=== PATIENT | female | born 1985 | race African-American/Black ===

== ENCOUNTER 2020-10-21 22:23 | Emergency (ER) | payer OTHER, SELFPAY ==
[2020-10-21 22:25] VITALS: BP 132/94; PULSE 112; RESP 18; TEMP 36.1; O2SAT 99
[2020-10-21] MEDS: SODIUM CHLORIDE 0.9% IV 1,000 ML 999 ML IV CONT (23:01)
[2020-10-21] MEDS: KETOROLAC 30 MG/ML VIAL (*BKC) IV PUSH (23:04)
--- NOTE | 2020-10-21 23:41 | ED.DENTAL ---
HPI - Dental/Oral General Chief complaint: Dental/Oral Stated complaint: sore throat, cant swallow Time Seen by Provider: 10/21/20 22:29 Source: RN notes reviewed History of Present Illness HPI Narrative: Patient presents emergency room from home for sore throat. Patient states symptoms began 2 days ago. She states she has sore throat that is worse with swallowing denies any fevers or chills rhinorrhea cough congestion abdominal pain nausea vomiting or any other symptoms states she has a history of frequent strep infections and feels similar to the past. States that she is able to tolerate liquids but is been drinking and eating minimally because it is very painful Related Data Allergies Allergy/AdvReac Type Severity Reaction Status Date / Time No Known Allergies Allergy Unverified 03/15/17 07:58 Review of Systems Review of Systems: Narrative: Gen.: Denies fevers or chills Eyes: Denies eye pain or visual change ENT: See HPI Respiratory: Denies shortness of breath or cough CV: Denies chest pain or palpitations GI: Denies abdominal pain nausea, emesis or diarrhea denies chance of Musculoskeletal: Denies back pain or muscle pain Neuro: Denies numbness, tingling, weakness or focal weakness Skin: Denies rash Except as documented, all other systems reviewed and negative PMFSH Past Medical History Medical History (Updated 10/21/20 @ 23:43 by Ritesh Covington DO) Patient denies significant medical history Social History Social History Smoking status: Never smoker Gender identity (if verbalized by the patient): Female Sexual Orientation (if Verbalized by the Patient): Straight or Heterosexual Exam Narrative: Exam Narrative: APPEARANCE: No acute distress, nontoxic, resting in bed EYES: EOMI HEENT: Normocephalic, atraumatic, TMs clear bilaterally nares patent oral mucosa moist, bilateral tonsils 3+ with white exudate bilaterally uvula midline no trismus voice normal tolerating own secretions Neck: Supple nontender RESPIRATORY: No respiratory distress Clear to auscultation bilaterally with no rhonchi wheezing or rales. CARDIOVASCULAR: Regular rate and rhythm without murmurs rubs or gallops. ABDOMINAL: Soft, nontender, nondistended, MUSCULOSKELETAl: Moves all extremities. NEURO: Awake and alert. Following commands, speech normal, no focal deficits SKIN:: Warm, dry. No rashes lesions or abrasions PSYCHIATRIC: Normal affect/mood, Course Course Emergency Course: Discussed with patient results of workup and diagnosis. Discussed need for follow-up with primary care, proper use of medication, and reasons to return to the emergency department. Patient understands and agrees to current treatment plan Vital Signs Vital signs: Vital Signs Temperature 96.9 F L 10/21/20 22:25 Pulse Rate 112 H 10/21/20 22:25 Respiratory Rate 18 10/21/20 22:25 Blood Pressure 132/94 H 10/21/20 22:25 Pulse Oximetry 99 10/21/20 22:25 Temperature 96.9 F L 10/21/20 22:25 Pulse Rate 112 H 10/21/20 22:25 Respiratory Rate 18 10/21/20 22:25 Blood Pressure 132/94 H 10/21/20 22:25 Pulse Oximetry 99 10/21/20 22:25 MDM - Dental/Oral Lab Data Labs: Strep Screen Presumptive Negative *(Reference Range: Negative)* Discharge Plan Discharge Clinical Impression: Pharyngitis Patient Disposition: Still a Patient Condition: Stable Instructions: Pharyngitis (ED) Additional Instructions: Return for increasing pain fever inability to swallow or any other symptoms of concern Prescriptions: New amoxicillin-pot clavulanate [Augmentin] 875-125 mg tablet 1 tablet PO Q12H Qty: 20 RF: 0 ibuprofen [IBU] 600 mg tablet 600 mg PO Q6H PRN (Reason: pain) Qty: 20 RF: 0 No Action amoxicillin-pot clavulanate [Augmentin] 875-125 mg tablet 1 tablet PO Q12H 10 Days Qty: 20 RF: 0 ibup
[2020-10-22] MEDS: AMOXICILLIN/CLAVULANATE K 875-125 MG TAB 1 TABLET PO (00:15)
[2020-10-22 00:19] VITALS: BP 130/90; PULSE 94; RESP 17; O2SAT 99
== END 2020-10-22 00:21 | disposition home or self-care (01) ==
PROVIDERS: Emergency Provider Emergency Medicine; PCP Emergency Medicine
DX: J02.9 Acute pharyngitis, unspecified (principal)
CPT/HCPCS: 87081; 87880; 96361; 96374; 96375; 99284; A9270; J1100; J1885; J7030

== ENCOUNTER 2020-12-06 11:20 | Outpatient (CLI) | payer OTHER, SELFPAY ==
[2020-12-06 11:40] LABS: Basophils Percent Auto 0.4 % (0.2-1.2); Eosinophils Percent Auto 0.7 % (0-4.4); Hemoglobin 12.2 g/dL (12.0-15.0); Immature Granulocyte Absolute 0.01 K/mm3 (0.00-0.031); Immature Granulocyte Percent A 0.2 % (0-0.5); Lymphocytes Absolute Auto 2.63 K/mm3 (0.9-3.2); Lymphocytes Percent Auto 46.4 % (18.3-44.2); Mean Corpuscular Hemoglobin 26.1 pg (26-34); Mean Corpuscular Volume 79.1 fl (80-100); Mean Platelet Volume 9.9 fl (7.4-10.4); Monocytes Absolute Auto 0.3 K/mm3 (0.1-0.6); Neutrophils Absolute Auto 2.6 K/mm3 (1.3-6.7); Neutrophils Percent Auto 46.3 % (45.5-73.1); Platelet Count Result 289 k/mm3 (150-375); Red Blood Count 4.68 M/mm3 (4.2-5.4); Red Cell Distribution Width 15.9 % (11.5-14.5); White Blood Count 5.7 K/mm3 (4.5-10.0)
[2020-12-06 13:22] LABS: Alanine Aminotransferase 18 U/L (4-35); Albumin Level 4.2 g/dL (3.5-5.1); Alkaline Phosphatase 81 U/L (38-126); Anion Gap 7 mmol/L (8-16); Aspartate Amino Transferase 24 U/L (14-36); Bilirubin,Total 0.4 mg/dL (0.2-1.3); Blood Urea Nitrogen 9 mg/dL (7-17); Calcium 9.2 mg/dL (8.4-10.2); Carbon Dioxide 28 mmol/L (22-30); Chloride 107 mmol/L (98-107); Estimated Glomerular Filt Rate > 60; Glucose 85 mg/dL (65-105); Potassium 4.2 mmol/L (3.4-5.0); Sodium 142 mmol/L (137-145)
[2020-12-06 13:28] LABS: Immunoglobulin A 301 mg/dL (70-400); Immunoglobulin G 2543 mg/dL (700-1600); Immunoglobulin M 133 mg/dL (40-230)
[2020-12-08 10:57] LABS: Kappa\\Lambda Light Chains 0.85 (0.26-1.65); Lambda Light Chain 24.6 mg/L (5.7-26.3)
[2020-12-09 05:04] LABS: Albumin 3.9 g/dL (3.8-4.8); Alpha 1 Globulin 0.4 g/dL (0.2-0.3); Alpha 2 Globulin 0.8 g/dL (0.5-0.9); Beta 1 Globulin 0.6 g/dL (0.4-0.6); Gamma Globulin 2.3 g/dL (0.8-1.7); Protein, Total 8.5 g/dL (6.1-8.1)
== END 2020-12-06 11:21 | disposition home or self-care (01) ==
LOC: ANHLAB 11:22
PROVIDERS: PCP Emergency Medicine; Visit Provider Internal Medicine Hematology & Oncology
DX: D80.1 Nonfamilial hypogammaglobulinemia (principal)
CPT/HCPCS: 36415; 80053; 82784; 83883; 84155; 84165; 84443; 85025

== ENCOUNTER 2020-12-15 14:31 | Emergency (ER) | payer OTHER, SELFPAY ==
--- NOTE | ~2020-12-15 | XR_ITS ---
EXAMINATION: XR ankle RT min 3V EXAM DATE: 12/15/2020 14:59 INDICATION: Fall, right ankle swelling laterally. Initial encounter. TECHNIQUE: Right ankle frontal, lateral and oblique projections obtained and reviewed. There is no p rior study for comparison. FINDINGS: The right ankle mortise appears intact. There are no acute fractures or dislocations iden tified. There is no subcutaneous gas. The soft tissue is unremarkable. There are no radiopaque fo reign bodies. IMPRESSION: 1. Right ankle exam without acute osseous findings. Reviewed, dictated and finalized at location A. [employer]
[2020-12-15 14:50] VITALS: BP 149/91; PULSE 89; RESP 16; TEMP 36.6; O2SAT 100
--- NOTE | 2020-12-15 15:13 | ED.LOWEXIN ---
HPI - Extremity Injury (Lower) General Chief Complaint: Extremity Injury, Lower Stated Complaint: Right ankle pain Time Seen by Provider: 12/15/20 15:08 Source: patient and RN notes reviewed Mode of arrival: ambulatory Limitations: no limitations History of Present Illness HPI Narrative: Patient presents today complaining of an injury to her right ankle. States she rolled it yesterday while shoveling. States it initially swelled, but after applying ice and elevating it the swelling is better today. Denies numbness or tingling in the leg or foot. She has been taking Tylenol without relief. She is walking with a limp and with increased pain with weightbearing. Reports the pain is to the lateral ankle. MD complaint: ankle injury Related Data Home Medications Medication Instructions Recorded Confirmed L norgest/e.estradiol-e.estrad 12/15/20 [Ashlyna] Allergies Allergy/AdvReac Type Severity Reaction Status Date / Time No Known Allergies Allergy Unverified 12/15/20 14:54 Review of Systems Review of Systems: Narrative: CONSTITUTIONAL: Denies body aches, fever, chills, or sweats. EYES: Denies visual changes, redness, or discharge. ENT: Denies rhinorrhea, congestion, sore throat, or otalgia. CARDIOVASCULAR: Denies chest pain, palpitations, or edema. RESPIRATORY: Denies cough or dyspnea. GASTROINTESTINAL: Denies abdominal pain, nausea, vomiting, or diarrhea. GENITOURINARY: Denies dysuria or hematuria. SKIN: Denies rash, itching, or wounds. MUSCULOSKELETAL: Denies back pain, or myalgia. + Right ankle injury NEUROLOGIC: Denies headache, numbness, tingling, or weakness. PSYCH: Denies depression or anxiety. [facility] Past Medical History Medical History Patient denies significant medical history Social History Social History Smoking status: Never smoker Gender identity (if verbalized by the patient): Female Comments At time of signature, I have reviewed and agree with nursing past medical, surgical, social and family history unless otherwise noted. Please see nursing chart for further information. There is no relevant family history pertinent to the presenting complaint Exam Narrative: Exam Narrative: GENERAL: Well-appearing, well-nourished, and in no acute distress. HEAD: Normocephalic, atraumatic. EYES: EOMI. No redness or drainage. Conjunctivae normal. ENT: Mucous membranes pink and moist. NECK: Normal AROM. CHEST: No respiratory distress. EXTREMITIES: Right ankle: Tenderness and localized edema to the lateral malleolus and soft tissue just anterior to the lateral malleolus. No tenderness to the medial malleolus or Achilles tendon. No tenderness to the foot. Distal sensation intact. Capillary refill normal. Pedal pulse normal. Full range of motion of toes. Range of motion of the ankle limited due to pain. SKIN: Warm, dry, no rash. Capillary refill normal. Normal skin turgor. NEURO: No focal deficits. Alert and oriented x3. Gait limping due to pain. PSYCH: Normal affect. No signs of depression or anxiety. Course Vital Signs Vital signs: Vital Signs Temperature 97.9 F 12/15/20 14:50 Pulse Rate 89 12/15/20 14:50 Respiratory Rate 16 12/15/20 14:50 Blood Pressure 149/91 H 12/15/20 14:50 Pulse Oximetry 100 12/15/20 14:50 Temperature 97.9 F 12/15/20 14:50 Pulse Rate 89 12/15/20 14:50 Respiratory Rate 16 12/15/20 14:50 Blood Pressure 149/91 H 12/15/20 14:50 Pulse Oximetry 100 12/15/20 14:50 Reviewed. Pt has been instructed to follow up with her PCP regarding her elevated blood pressure today. MDM - Extremity Injury (Lower) Differential Diagnosis Differential diagnosis: Likely ankle sprain and strain, ankle fracture and other (Foot sprain, foot fracture) Imaging Data Radiologist's impression: ITS Impressions Ankle X-Ray 12/15/20 1
== END 2020-12-15 15:18 | disposition home or self-care (01) ==
PROVIDERS: Emergency Provider Nurse Practitioner; PCP Emergency Medicine
DX: S93.401A Sprain of unspecified ligament of right ankle, initial encounter (principal); X50.9XXA Other and unspecified overexertion or strenuous movements or postures, initial encounter; X50.0XXA Overexertion from strenuous movement or load, initial encounter; Y93.H1 Activity, digging, shoveling and raking
CPT/HCPCS: 73610; 99213; G0463

== ENCOUNTER → 2020-12-28 10:59 | Outpatient (CLI) | payer OTHER, SELFPAY ==
[2020-12-28 23:32] LABS: SARS-CoV-2 RNA PCR Negative
== END ==
PROVIDERS: PCP Emergency Medicine; Visit Provider Emergency Medicine
DX: Z20.822 Contact with and (suspected) exposure to COVID-19 (principal)
CPT/HCPCS: C9803; U0003; U0005

== ENCOUNTER 2021-02-02 18:48 | Emergency (ER) | payer OTHER, SELFPAY ==
[2021-02-02 19:09] VITALS: BP 136/92; PULSE 98; RESP 16; TEMP 36.9; O2SAT 99
--- NOTE | 2021-02-02 19:11 | ED.NAVMDI ---
HPI - Nausea/Vomiting/Diarrhea General Chief complaint: Nausea/Vomiting/Diarrhea Stated complaint: vomitig/diarrhea/abd pain Source: patient and RN notes reviewed Limitations: no limitations History of Present Illness HPI Narrative: The obese patient, non-smoker/nondrinker, presents with diarrhea and vomiting. Patient states quick onset after seafood lunch today of diarrhea x3-4, associated with vomiting x1-2.No fever, blood, travel history, other symptomatic friends; no loss of taste/smell, CP, cough, S OB,; frequency/dysuria. No prior surgeries, she is on control ; symptoms are mild, associated with epigastric discomfort and eructation. Advised to go to higher-level care facility to higher level testing if not improved , because for early diagnosis of serious problems [appendicitis, etc], clear specific symptoms do not develope until later Related Data Home Medications Medication Instructions Recorded Confirmed L norgest/e.estradiol-e.estrad 12/15/20 [Ashlyna] Allergies Allergy/AdvReac Type Severity Reaction Status Date / Time No Known Allergies Allergy Unverified 12/15/20 14:54 Review of Systems Review of Systems: Narrative: The patient has been informed that they may have pre-hypertension or Hypertension based on a BP reading in the department. I recommend that the patient call the primary care provider listed on their discharge instructions or a physician of their choice this week to arrange follow up for further evaluation of possible pre-hypertension or Hypertension General/Constitutional: No weight loss,fever Eyes: N0: Redness,discharge Ears/Nose/Throat: No: Epistaxis,ear discharge Respiratory: Denies: Hemoptysis Gastrointestinal: + Vomiting, Bleeding-rectal Skin: No Lumps, eruption Neurologic: No Focal Weakness,Sz Hematologic: Denies: Petechiae/Purpura Psychiatric: No: Suicida ideationl All Other Systems: Reviewed and Negative [facility] Past Medical History Medical History Patient denies significant medical history Social History Social History Smoking status: Never smoker Gender identity (if verbalized by the patient): Female Comments At time of signature, agree with nursing past medical, surgical, social and family history. There is no relevant family history pertinent to the presenting complaint Exam Narrative: Exam Narrative: General Appearance: Well appearing, No distress EYE: PERRLA, Conjunctiva clear Ears: External ear normal Nose: Normal nose Mouth/Throat: Normal appearing, Normal lips Neck: Supple Respiratory: Airway patent, No respiratory distress Cardiovascular: RRR Abdomen: Soft, Non-tender, No massess, No organomegaly (no rebound/ surgical signs), Hyperactive BS Musculoskeletal: Full ROM Skin: Warm, Dry Neurological: A&O x3, CN II-X intact Psychiatric: Normal mood, Normal affect Course Vital Signs Vital signs: Vital Signs Temperature 98.5 F 02/02/21 19:09 Pulse Rate 98 02/02/21 19:09 Respiratory Rate 16 02/02/21 19:09 Blood Pressure 136/92 H 02/02/21 19:09 Pulse Oximetry 99 02/02/21 19:09 Temperature 98.5 F 02/02/21 19:09 Pulse Rate 98 02/02/21 19:09 Respiratory Rate 16 02/02/21 19:09 Blood Pressure 136/92 H 02/02/21 19:09 Pulse Oximetry 99 02/02/21 19:09 MDM - Nausea/Vomiting/Diarrhea Lab Data Labs: Lab Results 02/02/21 Range/Units 19:18 POC SARS CoV-2 Ag Negative (Negative) Discharge Plan Discharge Clinical Impression: Vomiting and diarrhea Patient Disposition: Home, Self-Care Condition: Improved Additional Instructions: You may take OTC preparations like Imodium, Pepcid Prescriptions: New ondansetron HCl [Zofran] 4 mg tablet 4 mg PO DAILY 1 Days Qty: 10 RF: 0 famotidine [Pepcid] 20 mg tablet 20 mg PO DAILY Qty: 20 RF: 0 No A
[2021-02-02] MEDS: ONDANSETRON HCL ODT 4 MG TABLET PO (19:22)
--- NOTE | 2021-02-02 19:55 | PC.NURSE ---
covid pcr drive through test faxed.
== END 2021-02-02 20:01 | disposition home or self-care (01) ==
PROVIDERS: Emergency Provider Emergency Medicine; PCP Emergency Medicine
DX: R11.11 Vomiting without nausea (principal); R19.7 Diarrhea, unspecified; Z20.822 Contact with and (suspected) exposure to COVID-19
CPT/HCPCS: 87426; 99213; A9270; C9803; G0463

== ENCOUNTER 2021-03-25 10:50 | Emergency (ER) | payer OTHER, SELFPAY ==
[2021-03-25 11:04] VITALS: BP 142/87; PULSE 64; RESP 18; TEMP 37; O2SAT 99
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
== END 2021-03-25 11:29 | disposition home or self-care (01) ==
PROVIDERS: Emergency Provider Nurse Practitioner; PCP Emergency Medicine
DX: S39.012A Strain of muscle, fascia and tendon of lower back, initial encounter (principal); S16.1XXA Strain of muscle, fascia and tendon at neck level, initial encounter; V49.40XA Driver injured in collision with unspecified motor vehicles in traffic accident, initial encounter; R03.0 Elevated blood-pressure reading, without diagnosis of hypertension
CPT/HCPCS: 99213; G0463

== ENCOUNTER 2021-04-18 09:29 | Emergency (ER) | payer OTHER, SELFPAY ==
[2021-04-18 10:00] VITALS: BP 152/90; PULSE 94; RESP 18; TEMP 36.2; O2SAT 100
--- NOTE | 2021-04-18 11:16 | PC.NURSE ---
Pt to ED with complaints of body aches, chills, loss of taste/smell, and intermittent rash. Pt tested positive for COVID on 04/05. Pt reports symptoms were very mild until the last 4 days. Pt denies cough, nausea, vomiting, or diarrhea.
--- NOTE | 2021-04-18 12:00 | ED.URI ---
HPI - URI/Sore Throat General Chief Complaint: Upper Respiratory Infection Stated Complaint: covid positive, rash, aches Time Seen by Provider: 04/18/21 11:47 Source: patient Mode of arrival: ambulatory Limitations: no limitations History of Present Illness HPI Narrative: This is a 36-year-old female that presents to the emergency department for body aches and headache. Reports she was recently diagnosed with Covid. Reports most of her cold symptoms have resolved, but she is still experiencing body aches and headaches. Also reports low-grade fevers and loss of sense of taste and smell. Reports she has intermittently had itchy rashes relieved with hydrocortisone cream. Denies chest pain or shortness of breath. Related Data Allergies Allergy/AdvReac Type Severity Reaction Status Date / Time No Known Allergies Allergy Unverified 04/18/21 11:18 Review of Systems Review of Systems: Narrative: CONSTITUTIONAL: Reports fever ENT: Denies rhinorrhea, congestion, sore throat CARDIOVASCULAR: Denies chest pain RESPIRATORY: Denies cough or dyspnea. SKIN: Reports rash and itching. MUSCULOSKELETAL: Reports myalgia. NEUROLOGIC: Reports headache. Denies numbness, or weakness. All systems reviewed & are unremarkable except as noted in HPI and below PMFSH Past Medical History Medical History Patient denies significant medical history Social History Social History Smoking status: Never smoker Gender identity (if verbalized by the patient): Female Exam Narrative: Exam Narrative: GENERAL: Well-appearing, well-nourished, and in no acute distress. HEAD: Normocephalic, atraumatic. EYES: PERRLA and EOMI. ENT: Nares clear, no rhinorrhea or epistaxis. Mucous membranes moist. Oropharynx without tonsillar hypertrophy exudate or other lesions. Bilateral TMs pearly roberts non-bulging NECK: Supple. No adenopathy or masses. Normal range of motion CHEST: Clear to auscultation. No respiratory distress. No wheezes rales or rhonchi HEART: Regular rate and rhythm. No murmur heard. Normal peripheral pulses. EXTREMITIES: Normal range of motion. No edema. Strength equal bilateral upper extremities (5/5) SKIN: Warm, dry, no rash. NEURO: No focal deficits. Alert and oriented x3. Cranial nerves II through XII grossly intact PSYCH: Normal mood and affect Course Vital Signs Vital signs: Vital Signs Temperature 97.2 F L 04/18/21 10:00 Pulse Rate 94 04/18/21 10:00 Respiratory Rate 18 04/18/21 10:00 Blood Pressure 152/90 H 04/18/21 10:00 Pulse Oximetry 100 04/18/21 10:00 Temperature 97.2 F L 04/18/21 10:00 Pulse Rate 94 04/18/21 10:00 Respiratory Rate 18 04/18/21 10:00 Blood Pressure 152/90 H 04/18/21 10:00 Pulse Oximetry 100 04/18/21 10:00 MDM - URI/Sore Throat MDM Narrative Medical decision making narrative: Patient with history of recently diagnosed Covid presents with headache and body aches. She is afebrile and nontoxic-appearing. She is neurologically intact. Vitals are stable. Given dose of Toradol with improvement in her symptoms. Also reporting intermittent itchy rashes. She was instructed on antihistamines for these. She is stable and felt appropriate for further outpatient evaluation. She is to follow-up with primary care doctor. She was given warnings to return to the ER Critical Care Time Critical Care Time Critical Care Time: No Discharge Plan Discharge Clinical Impression: 2019 novel coronavirus detected, Rash and nonspecific skin eruption Patient Disposition: Home, Self-Care Condition: Stable Instructions: Acute Rash (ED), COVID-19 (Coronavirus Disease 2019) (ED) Additional Instructions: Return to the emergency department for worsening symptoms, or any other concerns Remain well-hydrated, get plenty of rest. Take Tylenol or Motrin [id number] for pain as n
[2021-04-18] MEDS: KETOROLAC (*BKC) 60 MG/2 ML VIAL IM (12:10)
[2021-04-18 12:24] VITALS: BP 154/99; PULSE 103; RESP 16; O2SAT 100
== END 2021-04-18 12:20 | disposition home or self-care (01) ==
PROVIDERS: Emergency Provider Emergency Medicine; PCP Emergency Medicine
DX: U07.1 COVID-19 (principal); R21 Rash and other nonspecific skin eruption
CPT/HCPCS: 96372; 99283; J1885

== ENCOUNTER → 2021-04-25 06:38 | Outpatient (CLI) | payer OTHER, SELFPAY ==
[2021-04-25 18:16] LABS: SARS-CoV-2 RNA PCR Positive
== END ==
PROVIDERS: PCP Emergency Medicine; Visit Provider Emergency Medicine
DX: U07.1 COVID-19 (principal); R68.89 Other general symptoms and signs
CPT/HCPCS: C9803; U0003; U0005

== ENCOUNTER → 2021-04-30 06:41 | Outpatient (CLI) | payer OTHER, SELFPAY ==
[2021-05-02 15:56] LABS: SARS-CoV-2 RNA PCR Negative
== END ==
PROVIDERS: PCP Emergency Medicine; Visit Provider Emergency Medicine
DX: R68.89 Other general symptoms and signs (principal); Z20.822 Contact with and (suspected) exposure to COVID-19
CPT/HCPCS: C9803; U0003; U0005

== ENCOUNTER 2021-05-03 14:34 | Outpatient (CLI) | payer OTHER, SELFPAY ==
--- NOTE | ~2021-05-03 | XR_ITS ---
XR chest 2V DATE: 05/03/2021 14:52 INDICATION: Shortness of breath. Covid-positive. TECHNIQUE: PA and lateral views COMPARISON: None FINDINGS: Normal heart size. No hilar or mediastinal enlargement. No pulmonary infiltrate or consolid ation, pleural effusion or pulmonary vascular congestion or pneumothorax. Included skeletal structure s are unremarkable. IMPRESSION: No active cardiopulmonary disease Reviewed, dictated and finalized at location A.
== END 2021-05-03 14:35 | disposition home or self-care (01) ==
PROVIDERS: PCP Emergency Medicine; Visit Provider Emergency Medicine
DX: R06.02 Shortness of breath (principal)
CPT/HCPCS: 71046

== ENCOUNTER 2021-11-30 13:37 | Emergency (ER) | payer OTHER, SELFPAY ==
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
[2021-11-30 13:50] VITALS: BP 155/83; PULSE 100; RESP 16; TEMP 36.7; O2SAT 99
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
== END 2021-11-30 14:43 | disposition home or self-care (01) ==
PROVIDERS: Emergency Provider Nurse Practitioner; PCP Physician Assistant
DX: S16.1XXA Strain of muscle, fascia and tendon at neck level, initial encounter (principal); V48.5XXA Car driver injured in noncollision transport accident in traffic accident, initial encounter; S89.92XA Unspecified injury of left lower leg, initial encounter
CPT/HCPCS: 72050; 73562; 99214; G0463

== ENCOUNTER 2022-06-17 08:54 | Emergency (ER) | payer OTHER, SELFPAY ==
--- NOTE | ~2022-06-17 | XR_ITS ---
EXAMINATION: XR chest 2V DATE: 06/17/2022 09:33 INDICATION: Cough. TECHNIQUE: Frontal and lateral views of the chest were obtained. COMPARISON: Chest 2 views 05/03/21 FINDINGS: There is no pneumonia, pleural effusion, or pneumothorax. The heart size is normal. IMPRESSION: 1. No acute cardiopulmonary disease. Reviewed, dictated and finalized at location A.
--- NOTE | 2022-06-17 09:05 | ED.URI ---
HPI - URI/Sore Throat General Chief Complaint: Upper Respiratory Infection Stated Complaint: coughing up phlem, chest discomfort Time Seen by Provider: 06/17/22 09:15 Source: patient Mode of arrival: ambulatory Limitations: no limitations History of Present Illness HPI Narrative: Ms. Garcia is a 37-year-old female patient presenting to the clinic today with complaints of cough, chest discomfort, and congestion x1 week. She reports she got a hold of her primary care provider and they said stated that they thought she had bronchitis and they placed her on Medrol Dosepak. She reports that her symptoms are no better today. She reports yellow/green productive phlegm when coughing. Has some chest discomfort when laying flat with mild shortness of breath. She denies any runny nose or head congestion. She denies any fever currently. She had COVID at the beginning of the month. MD elicited complaint: cough and other (Chest congestion) Related Data Home Medications Medication Instructions Recorded Confirmed methylprednisolone 4 mg tablets in 4 mg PO DAILY 06/17/22 06/17/22 a dose pack Allergies Allergy/AdvReac Type Severity Reaction Status Date / Time No Known Allergies Allergy Verified 06/17/22 09:13 Review of Systems Review of Systems: Pertinent positives per HPI. Patient denies any fever, chills, rash, headache, visual changes, dizziness, runny nose, sore throat, palpitations, nausea, vomiting, diarrhea, constipation, abdominal pain, or any urinary issues. PMFSH Past Medical History Medical History Patient denies significant medical history Social History Social History Smoking status: Never smoker Gender identity (if verbalized by the patient): Female Sexual Orientation (if Verbalized by the Patient): Straight or Heterosexual Comments At the time of my signature, I reviewed and agree with the nursing past medical, surgical, social, and family history. There is no relevant family history pertinent to the patient complaint. Exam Narrative: General: Well-developed, well nourished, in no apparent distress Head: Normocephalic, atraumatic Eyes: Pupils equally round and reactive to light bilaterally, EOM intact, sclera and conjunctive clear, no discharge, lids normal Ears: TMs intact and clear, ear canals clear, no drainage, grossly hearing normal. Nose: Nares patent, clear nasal discharge, mild inflammation, no sinus tenderness. Mouth: Oral pharynx without lesions or masses, good dentition, MMM. Postnasal drip Neck: Supple, trachea midline, no enlargement of anterior or posterior cervical nodes, no thyroid masses or goiter palpable. Cardio: Regular rate and rhythm, s1 and s2 normal, no murmur appreciated. Resp: Lung sounds mildly diminished in the lower bases otherwise clear, no rhonchi, rales, wheezing or rubs Course Course Emergency Course: Portions of this record may have been created with voice recognition software. Level of Care: Express Care Visit Vital Signs Vital signs: Vital signs reviewed MDM - URI/Sore Throat MDM Narrative Medical decision making narrative: At the time of visit patient is resting comfortably on the exam table. Chest x-ray is negative for any pneumonia or pneumothorax, she has recently had COVID, I suspect the patient has some bronchitis, patient is taking prednisone without much resolution so I will place her on an albuterol inhaler and azithromycin. Supportive measures were discussed with the patient she voiced understanding of discharge instructions and agrees to treatment plan. Differential Diagnosis Differential diagnosis: Likely upper respiratory infection, sinusitis, viral infection, bronchitis, influenza, pharyngitis and other (COVID) Discharge Plan Discharge Clinical Impression: Bronchitis Patient Disposition: Home, Self-Care C
[2022-06-17 09:12] VITALS: BP 136/91; PULSE 102; RESP 18; TEMP 37.1; O2SAT 98
[2022-06-17 09:14] VITALS: BP 136/91; PULSE 102; RESP 18; TEMP 37.1; O2SAT 98
== END 2022-06-17 09:45 | disposition home or self-care (01) ==
PROVIDERS: Emergency Provider Nurse Practitioner Family
DX: J40 Bronchitis, not specified as acute or chronic (principal); Z86.16 Personal history of COVID-19
CPT/HCPCS: 71046; 99213; G0463

== ENCOUNTER 2022-08-24 13:25 | Emergency (ER) | payer OTHER, SELFPAY ==
[2022-08-24 13:43] VITALS: BP 134/90; PULSE 112; RESP 16; TEMP 37; O2SAT 99
--- NOTE | 2022-08-24 14:17 | ED.URI ---
HPI - URI/Sore Throat General Chief Complaint: Upper Respiratory Infection Stated Complaint: cold sx Time Seen by Provider: 08/24/22 14:17 Source: patient and RN notes reviewed Mode of arrival: ambulatory Limitations: no limitations History of Present Illness HPI Narrative: 37-year-old female presents to the [facility] with complaints of body aches, headache, sore throat, congestion, runny nose, postnasal drip since Sunday, 3 days. Had taken ibuprofen prior to arrival. Daughter has been sick 2 additional days. MD elicited complaint: fever, rhinorrhea and nasal congestion Related Data Allergies Allergy/AdvReac Type Severity Reaction Status Date / Time No Known Allergies Allergy Verified 08/24/22 13:48 Review of Systems Review of Systems: All systems reviewed & are unremarkable except as noted in HPI and below Constitutional: Constitutional: Reports as per HPI, Denies chills, Reports fatigue and Reports fever(s) Eyes: Eyes: Reports no additional eye complaints ENT: Reports as per HPI, Reports nasal congestion and Reports sore throat Cardiovascular: Cardiovascular: Reports no additional cardiovascular complaints Respiratory: Respiratory: Reports no additional respiratory complaints Gastrointestinal: Gastrointestinal: Reports no additional gastrointestinal complaints Musculoskeletal: Musculoskeletal: Reports no additional musculoskeletal complaints Integumentary/Breasts: Skin/Breast: Reports system reviewed and no additional complaints, except as docu Neurologic: Reports system reviewed and no additional complaints, except as documented Psychiatric: Psychiatric: Reports no additional psychiatric complaints Allergic/Immunologic: Allergic/Immunologic: Reports no additional allergic/immunologic complaints PMFSH Past Medical History Medical History Patient denies significant medical history Social History Social History Smoking status: Never smoker Gender identity (if verbalized by the patient): Female Sexual Orientation (if Verbalized by the Patient): Straight or Heterosexual Comments At the time of my signature, I reviewed and agree with the nursing past medical, surgical, social, and family history. There is no relevant family history pertinent to the patient complaint. Exam Const: General: no acute distress, alert, ill appearing acutely (mild) and well nourished Nutritional Appearance: well nourished Orientation/consciousness: patient oriented x3 Limitations: no limitations HENMT: Head: normal to inspection Ears: external ears normal, TM's normal bilaterally and EAC's normal Face/Nose/Sinus: Normal external nose present and Normal nares present Face and sinus: normal facial exam Throat: posterior oropharynx normal and uvula midline Eyes: General: appearance normal, both eyes and all related structures Conjunctivae: conjunctivae normal Pupils: Equal, round and reactive pupils present Neck: Neck: normal visual inspection, no lymphadenopathy and no meningeal signs Chest: Chest palpation & inspection: normal inspection of the chest Resp: Effort & Inspection: normal respiratory effort and no use of accessory muscles Auscultation: clear to auscultation bilaterally, no crackles, no rales, no rhonchi and no wheezes Cardio: Rate: regular rate Rhythm: regular rhythm Skin: General skin exam: normal color Rashes: no rashes Wounds: no wounds Neuro: General: patient oriented x3, moves all extremities, no meningeal signs and no focal motor deficits Cranial nerves: Yes Equal, round and reactive pupils present Speech: normal speech Gait exam (Neuro): Normal gait present Extrem: General: normal to inspection, full ROM and capillary refill normal Psych: Appearance: grossly normal and well kempt Mental Status: mental status grossly normal Affect: normal affect Attitude: cooperative Thought conten
== END 2022-08-24 14:21 | disposition home or self-care (01) ==
PROVIDERS: Emergency Provider Nurse Practitioner
DX: J10.1 Influenza due to other identified influenza virus with other respiratory manifestations (principal)
CPT/HCPCS: 87081; 87804; 87880; 99213; G0463

== ENCOUNTER 2022-12-07 13:33 | Emergency (ER) | payer OTHER, SELFPAY ==
[2022-12-07 13:46] VITALS: BP 143/89; PULSE 93; RESP 18; TEMP 36.8; O2SAT 100
--- NOTE | 2022-12-07 14:34 | ED.LOWEXIN ---
HPI - Extremity Injury (Lower) General Chief Complaint: Urogenital-Female Stated Complaint: UTI/Right Ankle Pain Time Seen by Provider: 12/07/22 14:26 Source: patient Mode of arrival: ambulatory Limitations: no limitations History of Present Illness HPI Narrative: Patient presents today with 2 separate complaints. She has had urinary frequency, dysuria, and hematuria for the last 3-4 days and has been taking azo with some relief. Denies abdominal pain, back pain, fever, nausea or vomiting. She was running to the bathroom, fell and twisted her right ankle yesterday, causing pain and swelling. Denies numbness or tingling. Pain increases with weight-bearing. She currently rates her pain 8/10 and has been taking ibuprofen with some relief. Patient is a [employer] and is on her feet a lot. Related Data Allergies Allergy/AdvReac Type Severity Reaction Status Date / Time No Known Allergies Allergy Verified 08/24/22 13:48 Review of Systems Review of Systems: CONSTITUTIONAL: Denies body aches, fever, chills, or sweats. EYES: Denies visual changes, redness, or discharge. ENT: Denies rhinorrhea, congestion, sore throat, or otalgia. CARDIOVASCULAR: Denies chest pain, palpitations, or edema. RESPIRATORY: Denies cough or dyspnea. GASTROINTESTINAL: Denies abdominal pain, nausea, vomiting, or diarrhea. GENITOURINARY:+ dysuria, frequency, hematuria SKIN: Denies rash, itching, or wounds. MUSCULOSKELETAL: Denies back pain, or myalgia.+ right ankle pain NEUROLOGIC: Denies headache, numbness, tingling, or weakness. PSYCH: Denies depression or anxiety. [facility] Past Medical History Medical History Patient denies significant medical history Social History Social History Smoking status: Never smoker Gender identity (if verbalized by the patient): Female Sexual Orientation (if Verbalized by the Patient): Straight or Heterosexual Comments At time of signature, I have reviewed and agree with nursing past medical, surgical, social and family history unless otherwise noted. Please see nursing chart for further information. There is no relevant family history pertinent to the presenting complaint Exam Narrative: GENERAL: Well-appearing, well-nourished, and in no acute distress. HEAD: Normocephalic, atraumatic. EYES: EOMI. No redness or drainage. Conjunctivae normal. ENT: Mucous membranes pink and moist. NECK: Normal AROM. CHEST: No respiratory distress. Clear to auscultation. HEART: Regular rate and rhythm. No murmur appreciated. Normal peripheral pulses. ABDOMEN: Soft, nontender, nondistended, normal active bowel sounds. EXTREMITIES: Right ankle: Localized soft tissue swelling just distal to the lateral malleolus. No bony tenderness to the lateral or medial malleolus. No tenderness to the foot. Distal sensation intact. Capillary refill normal. Pedal pulse normal. Full range of motion of the ankle, with pain with flexion and internal rotation. SKIN: Warm, dry, no rash. Capillary refill normal. Normal skin turgor. NEURO: No focal deficits. Alert and oriented x3. Gait steady. PSYCH: Normal affect. No signs of depression or anxiety. Course Course Level of Care: Express Care Visit Vital Signs Vital signs: Vital Signs Temperature 98.2 F 12/07/22 13:46 Pulse Rate 93 12/07/22 13:46 Respiratory Rate 18 12/07/22 13:46 Blood Pressure 143/89 H 12/07/22 13:46 Pulse Oximetry 100 12/07/22 13:46 Oxygen Delivery Room Air 12/07/22 13:46 Temperature 98.2 F 12/07/22 13:46 Pulse Rate 93 12/07/22 13:46 Respiratory Rate 18 12/07/22 13:46 Blood Pressure 143/89 H 12/07/22 13:46 Pulse Oximetry 100 12/07/22 13:46 Oxygen Delivery Room Air 12/07/22 13:46 Reviewed. Pt has been instructed to follow up with her PCP regarding her elevated blood pressure today. MDM - Extremity Injury (Lo
== END 2022-12-07 14:45 | disposition home or self-care (01) ==
PROVIDERS: Emergency Provider Nurse Practitioner; PCP Physician Assistant
DX: N30.01 Acute cystitis with hematuria (principal); S93.401A Sprain of unspecified ligament of right ankle, initial encounter; W19.XXXA Unspecified fall, initial encounter; Y93.02 Activity, running
CPT/HCPCS: 81003; 87077; 87086; 87186; 99213; G0463

== ENCOUNTER 2023-03-28 14:50 | Emergency (ER) | payer OTHER, SELFPAY ==
[2023-03-28 15:18] VITALS: BP 140/58; PULSE 120; RESP 20; TEMP 37.2; O2SAT 99
--- NOTE | 2023-03-28 15:52 | ED.URI ---
HPI - URI/Sore Throat General Chief Complaint: Upper Respiratory Infection Stated Complaint: sore throat Time Seen by Provider: 03/28/23 15:53 History of Present Illness HPI Narrative: [age] y/o female presented for c/o sore throat since yesterday. Unable to eat/drink anything due to the painful swallow. Able to maintain secretions. Endorses associated nausea, body aches, fever and headache. Taking ibuprofen. History of strep infections yearly. States she has required IV antibiotics in the past for strep. Denies sob, wheezing or difficulty breathing. Related Data Allergies Allergy/AdvReac Type Severity Reaction Status Date / Time No Known Allergies Allergy Verified 03/28/23 15:12 Review of Systems Review of Systems: CONSTITUTIONAL: Reports body aches, fever, chills, or sweats. EYES: Denies visual changes, redness, or discharge. ENT: Reports sore throat Denies rhinorrhea, congestion, or otalgia. CARDIOVASCULAR: Denies chest pain, palpitations, or edema. RESPIRATORY: Denies dyspnea. GASTROINTESTINAL: Denies nausea, abdominal pain, vomiting, or diarrhea. SKIN: Denies rash, itching, or wounds. MUSCULOSKELETAL: Denies back pain, joint pain, or myalgia. NEUROLOGIC: Denies headache PMFSH Past Medical History Medical History Patient denies significant medical history Social History Social History Smoking status: Never smoker Gender identity (if verbalized by the patient): Female Sexual Orientation (if Verbalized by the Patient): Straight or Heterosexual Exam Narrative: GENERAL: Ill-appearing, no acute distress. EYES: conjunctivae clear ENT: Mucous membranes moist. TM pearly roberts with normal light reflex bilaterally; no tragal tenderness. Oropharynx erythematous Tonsils enlarged with exudate. Hot potato voice noted. No drooling, no hoarseness, no trismus, uvula midline. No tripod positioning, or soft palate swelling. NECK: Supple. bilateral anterior cervical lymphadenopathy CHEST: Clear to auscultation, breath sounds equal. No respiratory distress, speaks in full sentences. HEART: Regular rate and rhythm. No murmur heard. SKIN: Warm, dry, no rash. NEURO: Alert and oriented x3. Course Course Emergency Course: Patient is aware of diagnosis, understands and agrees to treatment plan. Anticipatory guidance given. Patient agrees to follow-up as directed and is aware of reasons to seek care at the emergency department. Portions of this record may have been created with voice recognition software Level of Care: Express Care Visit Vital Signs Vital signs: Vital Signs Temperature 98.9 F 03/28/23 15:18 Pulse Rate 120 H 03/28/23 15:18 Respiratory Rate 20 03/28/23 15:18 Blood Pressure 140/58 L 03/28/23 15:18 Pulse Oximetry 99 03/28/23 15:18 Oxygen Delivery Room Air 03/28/23 15:18 Temperature 98.9 F 03/28/23 15:18 Pulse Rate 120 H 03/28/23 15:18 Respiratory Rate 20 03/28/23 15:18 Blood Pressure 140/58 L 03/28/23 15:18 Pulse Oximetry 99 03/28/23 15:18 Oxygen Delivery Room Air 03/28/23 15:18 MDM - URI/Sore Throat MDM Narrative Medical decision making narrative: Discussed physical exam findings. strep result reviewed with pt. Advised supportive treatments. She is aware to monitor closely and go to the ER if symptoms do not improve. Advised supportive measures and signs/symptoms to go to the ER. Pt is appropriate for outpt treatment and f/u. Differential Diagnosis Differential diagnosis: Likely upper respiratory infection, viral infection and pharyngitis Lab Data Labs: Strep Screen Positive Group A Strep *(Reference Range: Negative)* Discharge Plan Discharge Clinical Impression: Strep pharyngitis Patient Disposition: Home, Self-Care Condition: Stable Instructi
== END 2023-03-28 16:05 | disposition home or self-care (01) ==
PROVIDERS: Emergency Provider Nurse Practitioner Family
DX: J02.0 Streptococcal pharyngitis (principal)
CPT/HCPCS: 87880; 99213; G0463

== ENCOUNTER 2023-06-19 13:47 | Emergency (ER) | payer OTHER, SELFPAY ==
--- NOTE | 2023-06-19 13:52 | ED.EAR ---
HPI - Ear Problem General Chief complaint: Ear Stated complaint: ears feel clogged Source: patient and RN notes reviewed History of Present Illness HPI Narrative: 38 yo F presents to urgent care with complaints of bilateral ear itching and irritation. Pt states this has been going on for about a month. Pt was seen by her PCP who instructed her to take Zyrtec every night. Pt states she has been taking the Zyrtec with minimal relief. Pt states she feels like something is in her ears. Denies any specific pain. Denies any fevers, chills, chest pain, SOB, vomiting, sore throat, or congestion. Pt does report some watery eyes intermittently. Related Data Allergies Allergy/AdvReac Type Severity Reaction Status Date / Time No Known Allergies Allergy Verified 06/19/23 13:56 Review of Systems Review of Systems: CONSTITUTIONAL: Denies fever, chills, or sweats. EYES: Denies visual changes, redness, or discharge. ENT: Bilateral ear itching CARDIOVASCULAR: Denies chest pain, palpitations, or edema. RESPIRATORY: Denies cough or dyspnea. GASTROINTESTINAL: Denies abdominal pain, nausea, vomiting, or diarrhea. GENITOURINARY: Denies dysuria or hematuria. SKIN: Denies rash or itching. MUSCULOSKELETAL: Denies back pain, joint pain, or myalgia. NEUROLOGIC: Denies headache, numbness, or weakness. Pertinent positives per HPI. [facility] Past Medical History Medical History Patient denies significant medical history Social History Social History Smoking status: Never smoker Gender identity (if verbalized by the patient): Female Sexual Orientation (if Verbalized by the Patient): Straight or Heterosexual Comments At the time of my signature, I reviewed and agree with the nursing past medical, surgical, social, and family history. There is no relevant family history pertinent to the patient complaint. Exam Narrative: GENERAL: This is a well-nourished, well-developed patient, in no apparent distress. HEAD: normocephalic, atraumatic. EYES: Sclera clear/white. Vision is grossly intact. EARS: Right outer ear has notable scabbing. Bilateral TMs noted to have clear fluid posteriorly. No erythema or cerumen noted. No FB. NOSE: External nose normal with no obvious nasal discharge, nares without redness, no rhinorrhea. THROAT: Mucous membranes moist, posterior pharynx clear. NECK: Neck supple, non-tender without lymphadenopathy, masses or thyromegaly. CARDIOVASCULAR: Regular rate RESPIRATORY: No respiratory distress SKIN: warm, intact with no suspicious lesions or rash, good texture and turgor. NEURO: awake, alert, and oriented to person, place and time. There were no obvious focal neurologic abnormalities. Course Course Level of Care: Express Care Visit Vital Signs Vital signs: Vital Signs Temperature 98.7 F 06/19/23 13:56 Pulse Rate 111 H 06/19/23 13:56 Respiratory Rate 16 06/19/23 13:56 Blood Pressure 118/80 06/19/23 13:56 Pulse Oximetry 99 06/19/23 13:56 Oxygen Delivery Room Air 06/19/23 13:56 Temperature 98.7 F 06/19/23 13:56 Pulse Rate 111 H 06/19/23 13:56 Respiratory Rate 16 06/19/23 13:56 Blood Pressure 118/80 06/19/23 13:56 Pulse Oximetry 99 06/19/23 13:56 Oxygen Delivery Room Air 06/19/23 13:56 Reviewed Medical Decision Making MDM Narrative Medical decision making narrative: Take your Zyrtec daily and use the Flonase daily. Follow up with ENT. Differential Diagnosis Differential Diagnosis: AOM, otitis media w/ effusion, cerumen impaction Vital Signs Vital Signs: Vital Signs Temperature 98.7 F 06/19/23 13:56 Pulse Rate 111 H 06/19/23 13:56 Respiratory Rate 16 06/19/23 13:56 Blood Pressure 118/80 06/19/23 13:56 Pulse Oximetry 99 06/19/23 13:56 Oxygen Delivery Room Air 06/19/23 13:56 Temperature 98.7 F 06/19/23 13:56
[2023-06-19 13:56] VITALS: BP 118/80; PULSE 111; RESP 16; TEMP 37.1; O2SAT 99
== END 2023-06-19 14:15 | disposition home or self-care (01) ==
PROVIDERS: Emergency Provider Nurse Practitioner Family
DX: H65.03 Acute serous otitis media, bilateral (principal)
CPT/HCPCS: 99213; G0463

== ENCOUNTER 2023-08-13 16:23 | Emergency (ER) | payer OTHER, SELFPAY ==
[2023-08-13 16:40] VITALS: BP 125/78; PULSE 100; RESP 16; TEMP 36.8; O2SAT 100
--- NOTE | 2023-08-13 17:13 | ED.URI ---
HPI - URI/Sore Throat General Chief Complaint: Upper Respiratory Infection Stated Complaint: headache,cough Source: patient Mode of arrival: ambulatory Limitations: no limitations History of Present Illness HPI Narrative: 38-year-old female presents to [facility] with complaints of productive cough of green colored phlegm, headache, body aches, sinus pressure, nasal congestion for the past 2 weeks. Patient reports that she is currently 6-7 weeks and has not tried taking any xakc-lla-kmnonde medications for symptoms. Patient denies shortness of breath, fever, chills, nausea vomiting or diarrhea. MD elicited complaint: rhinorrhea and nasal congestion Onset (ago): week(s) (2) Able to tolerate fluids by mouth: Yes Exacerbating factors: nothing Relieving factors: nothing Treatments prior to arrival: none Related Data Allergies Allergy/AdvReac Type Severity Reaction Status Date / Time No Known Allergies Allergy Verified 08/13/23 16:27 Review of Systems Constitutional: Constitutional: Denies chills, Denies fatigue, Denies fever(s) and Denies weakness ENT: Denies vertigo, Denies dizziness, Denies epistaxis and Reports nasal congestion Comments: Runny nose, sinus pressure Cardiovascular: Cardiovascular: Denies chest pain Respiratory: Respiratory: Reports cough, Denies dyspnea and Reports wheezing Gastrointestinal: Gastrointestinal: Denies diarrhea, Denies nausea and Denies vomiting Musculoskeletal: Musculoskeletal: Denies arthralgias and Denies joint swelling Integumentary/Breasts: Skin/Breast: Denies pruritus, Denies erythema and Denies rash Neurologic: Denies dizziness, Denies syncope and Denies headache(s) PMFSH Past Medical History Medical History Patient denies significant medical history Social History Social History Smoking status: Never smoker Gender identity (if verbalized by the patient): Female Sexual Orientation (if Verbalized by the Patient): Straight or Heterosexual Comments At time of signature, I agree with nursing past medical, surgical, social and family history. There is no relevant family history pertinent to the presenting complaint. Exam Const: General: healthy appearing and no acute distress Nutritional Appearance: well nourished Orientation/consciousness: patient oriented x3 Limitations: no limitations HENMT: Head: normal to inspection Ears: external ears normal, TM's normal bilaterally and EAC's normal Face/Nose/Sinus: Normal external nose present Face and sinus: normal facial exam Mouth: Yes Normal oral and palatal mucosa present and Yes moist mucous membranes Teeth and gingiva: dentition normal Throat: uvula midline Other: moderate nasal congestion noted, mild erythema noted to oropharynx Eyes: Conjunctivae: conjunctivae normal Resp: Effort & Inspection: normal respiratory effort and not labored Auscultation: clear to auscultation bilaterally, no crackles, no rales, no rhonchi and no wheezes Cardio: Rate: regular rate Rhythm: regular rhythm Heart sounds: no murmurs Skin: General skin exam: normal color Rashes: no rashes Neuro: General: patient oriented x3 Speech: normal speech Psych: Affect: normal affect Attitude: cooperative Course Course Level of Care: Express Care Visit Vital Signs Vital signs: Vital Signs Temperature 36.8 C 08/13/23 16:40 Pulse Rate 100 08/13/23 16:40 Respiratory Rate 16 08/13/23 16:40 Blood Pressure 125/78 08/13/23 16:40 Pulse Oximetry 100 08/13/23 16:40 Temperature 36.8 C 08/13/23 16:40 Pulse Rate 100 08/13/23 16:40 Respiratory Rate 16 08/13/23 16:40 Blood Pressure 125/78 08/13/23 16:40 Pulse Oximetry 100 08/13/23 16:40 MDM - URI/Sore Throat MDM Narrative Medical decision making narrative: informed patient that it is safe with to take o
== END 2023-08-13 17:25 | disposition home or self-care (01) ==
PROVIDERS: Emergency Provider Nurse Practitioner Family
DX: O99.511 Diseases of the respiratory system complicating pregnancy, first trimester (principal); Z3A.00 Weeks of gestation of pregnancy not specified; J32.9 Chronic sinusitis, unspecified
CPT/HCPCS: 99213; G0463

== ENCOUNTER 2024-05-12 10:48 | Emergency (ER) | payer SELFPAY ==
--- NOTE | ~2024-05-12 | US_ITS ---
EXAMINATION: US OB <=14 wk fetus w TV DATE: 05/12/2024 14:49 INDICATION: Vaginal bleeding during first trimester TECHNIQUE: Real-time pelvic ultrasound utilizing both a transvaginal and transabdominal probe was pe rformed. The interpreting radiologist was not present for the study. COMPARISON: None. FINDINGS: The uterus measures 11.4 x 5.4 x 5.8 cm. There is a small 8 mm diameter indeterminate intrauterine f luid collection at the uterine fundus without definitive double decidual sign, yolk sac or pole .Presenting this represents a gestational sac this would relate with an estimated gestational age of 5 weeks and 4 days. There is an additional minimal amount of anechoic fluid within the endometrial ca nal of the lower uterine segment. The right ovary measures 2.1 x 1.5 x 1.6 cm. The left ovary measures 2.9 x 2.4 x 1.7 cm. Vascular irving w identified on color Doppler both ovaries. No abnormal adnexal masses. There is no free fluid in the pelvis. IMPRESSION: 1. 8 mm diameter fluid collection at the fundus without double decidual sign, yolk sac or pole to definitively identify a gestational sac and differential would include early , failed pre gnancy or ectopic . 2. Presenting this represents a gestational sac, the gestational age based upon mean sac diameter wou ld be 5 weeks 4 day(s) +/- 4 day(s) with ultrasound estimated date of delivery (DANILO) of 01/08/2025. Reviewed, dictated and finalized at location A. IMPRESSION: 1. 8 mm diameter fluid collection at the fundus without double decidual sign, y olk sac or pole to definitively identify a gestational sac and differenti al would include early , failed or ectopic . 2. Presenting this represents a gestational sac, the gestational age based upon mean sac diameter would be 5 weeks 4 day(s) +/- 4 day(s) with ultrasound estim ated date of delivery (DANILO) of 01/08/2025.
[2024-05-12 10:54] VITALS: BP 143/90; PULSE 86; RESP 18; TEMP 36.4; O2SAT 100
[2024-05-12 12:02] VITALS: BP 141/95; BP 158/106; PULSE 81; PULSE 84
[2024-05-12 12:04] VITALS: BP 166/116; PULSE 87
[2024-05-12 12:05] LABS: Basophils Percent Auto 0.3 % (0.2-1.2); Eosinophils Percent Auto 0.7 % (0-4.4); Hematocrit 33.4 % (37.0-47.0); Hemoglobin 10.8 g/dL (12.0-15.0); Immature Granulocyte Absolute 0.03 K/mm3 (0.00-0.031); Immature Granulocyte Percent A 0.5 % (0-0.5); Lymphocytes Absolute Auto 2.11 K/mm3 (0.9-3.2); Lymphocytes Percent Auto 34.7 % (18.3-44.2); Mean Corpuscular HGB Conc 32.3 g/dl (32-36); Mean Corpuscular Hemoglobin 25.1 pg (26-34); Mean Corpuscular Volume 77.7 fl (80-100); Mean Platelet Volume 9.4 fl (7.4-10.4); Monocytes Absolute Auto 0.4 K/mm3 (0.1-0.6); Monocytes Percent Auto 6.9 % (2.6-8.5); Neutrophils Absolute Auto 3.5 K/mm3 (1.3-6.7); Neutrophils Percent Auto 56.9 % (45.5-73.1); Platelet Count Result 260 k/mm3 (150-375); Red Cell Distribution Width 16.1 % (11.5-14.5); White Blood Count 6.1 K/mm3 (4.5-10.0)
[2024-05-12 12:15] LABS: INR 1.1; Prothrombin Time 14.6 Seconds (11.1-14.7)
[2024-05-12 12:16] LABS: Partial Thromboplastin Time 27.6 Seconds (22.3-36.8)
[2024-05-12 12:32] LABS: Beta HCG Quantitative 35.57 mIU/ML
[2024-05-12 12:35] LABS: Alanine Aminotransferase 11 U/L (6-35); Albumin Level 4.2 g/dL (3.5-5.1); Alkaline Phosphatase 77 U/L (38-126); Anion Gap 10 mmol/L (4-12); Aspartate Amino Transferase 19 U/L (14-36); Bilirubin,Total 0.4 mg/dL (0.2-1.3); Blood Urea Nitrogen 6 mg/dL (7-17); Calcium 8.9 mg/dL (8.4-10.2); Carbon Dioxide 25 mmol/L (22-30); Chloride 106 mmol/L (98-107); Estimated CRCL calculation 112 ml/min; Estimated Glomerular Filt Rate > 60; Glucose 98 mg/dL (65-110); Potassium 3.5 mmol/L (3.4-5.0); Sodium 141 mmol/L (137-145)
--- NOTE | 2024-05-12 13:39 | ED.FEMALEGU ---
HPI - Female Genitourinary General Chief complaint: Vaginal Bleeding Stated complaint: VAGINAL BLEEDING/CRAMPING/? MISCARRIAGE Time Seen by Provider: 05/12/24 11:45 History of Present Illness HPI Narrative: Patient is a 39-year-old female, , last menstrual period 03/27/2024, positive test at home here with vaginal bleeding. Patient states that on she began having some vaginal bleeding. She was passing some clots and was concerned that she could be having a miscarriage. She states that she has been having continued vaginal bleeding with passage of clots. She states she is saturating 1 pad per hour at this time. She has passed his large as a lemon sized clot which is what triggered her to come into the hospital today. She endorses some associated abdominal cramping. She has had some shortness of breath, no chest pain or lightheadedness. She has previously followed with an OBGYN in [place], attempted to call their office with no response, is not adamant about following up with him again. Related Data Allergies Allergy/AdvReac Type Severity Reaction Status Date / Time No Known Allergies Allergy Verified 05/12/24 10:56 Review of Systems Review of Systems: All systems reviewed & are unremarkable except as noted in HPI and below PMFSH Past Medical History Medical History Patient denies significant medical history Social History Social History Smoking status: Never smoker Gender identity (if verbalized by the patient): Female Sexual Orientation (if Verbalized by the Patient): Straight or Heterosexual Exam Narrative: GENERAL: Well-appearing, well-nourished, and in no acute distress. HEAD: Normocephalic, atraumatic. EYES: PERRLA and EOMI. ENT: Nares clear. Mucous membranes moist. NECK: Supple. CHEST: Clear to auscultation. No respiratory distress. HEART: Regular rate and rhythm. Normal peripheral pulses. ABDOMEN: Soft, mild suprapubic tenderness, no rebound or guarding, nondistended. : Exam performed with RN as editor sound. On speculum exam patient has a small amount of oozing blood, no obvious clots, no massive hemorrhage appreciated. EXTREMITIES: Normal range of motion. No edema. SKIN: Warm, dry, no rash. NEURO: No focal deficits. Alert and oriented x3. PSYCH: Normal mood and affect. Course Course Emergency Course: Chart review performed patient is a here with vaginal bleeding. She reports she had a positive test last week, began having vaginal bleeding with clots on 05/02. She is soaking approximately 1 pad per hour. Last menstrual period 03/27/2024. Triage vitals show hypertension, otherwise within normal limits. Patient seen evaluated, nontoxic appearing. Concern for miscarriage versus retained products of conception verses threatened miscarriage. Will do ultrasound, vaginal exam, basic lab work, hCG levels, type and screen. Patient agreeable to workup and plan. Lab work and imaging reviewed, CBC shows a mild anemia with the hemoglobin of 10.8, we do not have any comparisons in our system over the last 3 years, electrolytes grossly normal, hCG 35.57. Ultrasound shows a 8 mm fluid collection at the fundus without double decidual sign yolk sac or pole to identify a gestational sac, differentials include early , failed , no adnexal masses appreciated. Spoke with Dr. Muro, emotional support teacher for obgyn, advises strict return precautions. Repeat HCG in 2 days and clinic follow up in 3 days. At that point they will be able to determine if this is a viable basend on HCG trend and discuss further management. The results of pertinent diagnostic studies and exam findings were discussed. The patient?s provisional diagnosis and plan of care were discussed with the patient and present family. The patient and/or present family expressed understanding
[2024-05-12 16:18] VITALS: BP 130/75; PULSE 68; RESP 16
--- NOTE | 2024-05-21 10:01 | PC.NURSE ---
LATE ENTRY This note is being entered to document information to the patient's record. The following information was omitted on [05/12/2024], by [Veronica]. RhoGam given to pt on 05/12/24 at 1545. Given in left ventral gluteal without complications
== END 2024-05-12 16:19 | disposition home or self-care (01) ==
PROVIDERS: Physician Assistant; Emergency Provider Student in an Organized Health Care Education/Training Program
DX: O20.0 Threatened abortion (principal); Z3A.01 Less than 8 weeks gestation of pregnancy
CPT/HCPCS: 36415; 76801; 76817; 80053; 81025; 84702; 85025; 85461; 85610; 85730; 86850; 86900; 86901; 90384; 96372; 99284; J2790

== ENCOUNTER 2024-07-28 08:04 | Emergency (ER) | payer MEDICAID, SELFPAY ==
--- NOTE | ~2024-07-28 | XR_ITS ---
Clinical Indication: Cough PA and lateral views of the chest: Comparison: 06/17/2022 Findings: The lungs are clear, without evidence of focal consolidation or pleural effusion. Cardiome diastinal silhouette is within normal limits. Bones and soft tissues are unremarkable. Impression: Normal chest. Reviewed, dictated and finalized at location . Impression: Normal chest.
[2024-07-28 08:09] VITALS: BP 144/89; PULSE 109; RESP 16; TEMP 37.8; O2SAT 100
--- NOTE | 2024-07-28 08:10 | ED.URI ---
HPI - URI/Sore Throat General Chief Complaint: Upper Respiratory Infection Stated Complaint: cough,right side chest pain Time Seen by Provider: 07/28/24 08:45 Source: patient and RN notes reviewed Mode of arrival: ambulatory Limitations: no limitations History of Present Illness HPI Narrative: 39-year-old female presents with concern for cough, fever, chest discomfort with coughing, runny nose stuffy nose, sore throat. Reports symptoms started on Sunday. Reports symptoms worsened with the chest discomfort yesterday. She reports she has been having fevers up to 101.9. She has taken something for fever but has not taken anything for cough. 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 EYES: Denies visual changes, redness, or discharge. ENT: Reports rhinorrhea, congestion, and sore throat. CARDIOVASCULAR: Denies chest pain, palpitations, or edema. RESPIRATORY: Reports cough. Denies dyspnea. GASTROINTESTINAL: Denies abdominal pain, nausea, vomiting, diarrhea SKIN: Denies rash or itching. MUSCULOSKELETAL: Denies myalgia. NEUROLOGIC: Denies headache. All systems reviewed & are unremarkable except as noted in HPI and below PMFSH Past Medical History Medical History Patient denies significant medical history Social History Social History Smoking status: Never smoker Gender identity (if verbalized by the patient): Female Sexual Orientation (if Verbalized by the Patient): Straight or Heterosexual Comments At time of signature, agree with nursing past medical, surgical, social and family history. There is no relevant family history pertinent to the presenting complaint Exam Narrative: GENERAL: Nontoxic-appearing, well-nourished, and in no acute distress. HEAD: Normocephalic EYES: PERRLA, conjunctivae clear ENT: Nares clear. Mucous membranes moist. TM pearly roberts with dull light reflex bilaterally; no tragal tenderness. Oropharynx not erythematous without lesions. Tonsils not enlarged and without exudate, no drooling, no hoarseness, no trismus, uvula midline. NECK: Supple. No lymphadenopathy CHEST: Clear to auscultation, diminished breath sounds equal. No wheezing, rhonchi, rales, or stridor. No respiratory distress, speaks in full sentences. HEART: Regular rate and rhythm. No murmur heard. SKIN: Warm, dry, no rash. NEURO: Alert and oriented x3. PSYCH: Normal mood and affect Course Course Emergency Course: Patient is aware of diagnosis, understands and agrees to treatment plan. Anticipatory guidance given. Patient agrees to follow-up as directed and is aware of reasons to seek care at the emergency department. Portions of this record may have been created with voice recognition software Level of Care: Express Care Visit Vital Signs Vital signs: Reviewed. MDM - URI/Sore Throat MDM Narrative Medical decision making narrative: Differential diagnosis considered: Modi virus, strep pharyngitis, allergic rhinitis, upper respiratory tract infection, sinusitis, rhinosinusitis, nasopharyngitis. viral pharyngitis, otitis media, otitis externa, pneumonia, bronchitis, viral cough syndrome, viral syndrome, and influenza. Exam findings show no acute concerns or changes; patient is non-toxic appearing and is in no distress. Patient is appropriate for outpatient treatment and follow-up. Lab Data Attestation: I reviewed the patient's lab results. Imaging Data My impression: Images reviewed, interpreted by radiologist, agree, see report. Radiologist's impression: Clinical Indication: Cough PA and lateral views of the chest: Comparison:
[2024-07-28 14:31] LABS: EDCOVIDSCREEN Negative (Negative); EDINFLUASCREEN Negative (Negative); EDINFLUBSCREEN Negative (Negative)
[2024-07-28 14:31] LABS: EDSTREPNEGPOS1 Negative (Negative)
== END 2024-07-28 09:52 | disposition home or self-care (01) ==
PROVIDERS: Emergency Provider Nurse Practitioner; PCP Physician Assistant
DX: J22 Unspecified acute lower respiratory infection (principal); Z20.822 Contact with and (suspected) exposure to COVID-19
CPT/HCPCS: 71046; 87081; 87426; 87804; 87880; 99213; G0463

== ENCOUNTER 2024-10-20 14:26 | Emergency (ER) | payer SELFPAY ==
--- NOTE | 2024-10-20 14:35 | ED_ITS ---
HPI - Extremity Problem General Chief complaint: Extremity Injury, Upper Stated complaint: Wrist Pain Time Seen by Provider: 10/20/24 14:35 Source: patient and RN notes reviewed Mode of arrival: ambulatory Limitations: no limitations History of Present Illness HPI Narrative: 39-year-old female presents concern for right wrist pain. She denies injury or trauma. Reports palmar wrist pain that started yesterday. She reports that it feels swollen. She denies any intervention. 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 CARDIOVASCULAR: Denies chest pain, palpitations, or edema. RESPIRATORY: Denies cough or dyspnea. SKIN: Denies rash or itching, bruising, redness MUSCULOSKELETAL: Reports right wrist pain NEUROLOGIC: Denies numbness, weakness All systems reviewed & are unremarkable except as noted in HPI and below PMFSH Past Medical History Medical History Patient denies significant medical history Social History Social History Smoking status: Never smoker Gender identity (if verbalized by the patient): Female Sexual Orientation (if Verbalized by the Patient): Straight or Heterosexual Comments At time of signature, agree with nursing past medical, surgical, social and family history. There is no relevant family history pertinent to the presenting complaint Exam Narrative: GENERAL: Well-appearing, well-nourished, and in no acute distress. HEAD: Normocephalic, atraumatic. EYES: PERRLA, conjunctivae clear NECK: Supple. CHEST: Speaks in full sentences. No respiratory distress. HEART: Regular rate and rhythm. Normal and equal peripheral pulses. EXTREMITIES: Right wrist, hand, digits have grossly normal strength and sensation, normal range of motion. No edema or ecchymosis. Normal sensation with sensitivity to light touch and pain. Palmar tenderness. No open wounds, no skin tenting, no devitalized tissue or atrophy, no trophic changes, no obvious deformity, alignment normal, nearby joints and structures intact. Distal pulses palpable and equal bilaterally, skin warm, dry, pink. Capillary refill less than 3 seconds. Positive tinnel sign SKIN: Warm, dry, no rash. NEURO: Alert and oriented x3. PSYCH: Normal mood and affect Course Course Emergency Course: Patient is aware of diagnosis, understands and agrees to treatment plan. Anticipatory guidance given. Patient agrees to follow-up as directed and is aware of reasons to seek care at the emergency department. Portions of this record may have been created with voice recognition software Level of Care: Express Care Visit Vital Signs Vital signs: Reviewed. MDM - Extremity (Nontraumatic) MDM Narrative Medical decision making narrative: Patients pain is consistent with musculoskeletal etiology. No signs of neurological or vascular compromise on exam. Compartments and tissues are soft without signs of compartment syndrome. Pain is felt appropriate for further evaluation on an outpatient basis. Critical Care Time Critical Care Time Critical Care Time: No Discharge Plan Discharge Clinical Impression: Right wrist pain Patient Disposition: Home, Self-Care Condition: Stable Instructions: Tendinitis (ED) Additional Instructions: Avoid activities that cause pain until the pain subsides. Ice to the area 20-30 minutes 4-6 times a day Elevate above heart Elastic wrap as directed for comfort for the next 5-7 days Tylenol for lesser pain Ibuprofen regularly for the next 2-3 days for the inflammation Follow up with your primary care provider if the condition is not improving within 1 week. If the condition worsens with numbness, tingling, decrease sensation with weakness seek treatment in the emergency room immediately. Patient Language: Bur[place]ian Prescriptions: New ibuprofen 800 mg tablet 800 mg PO Q6H PRN (Reason: pain) Qty: 30 0RF Follow-up/Referrals: PHYSICIAN,[employer] [Primary Care Provider] - Stand Alone Forms: Work/School Release IP Time of Disposition: 14:41
[2024-10-20 14:36] VITALS: BP 134/89; PULSE 83; RESP 16; TEMP 36.5; O2SAT 98
== END 2024-10-20 14:43 | disposition home or self-care (01) ==
PROVIDERS: Emergency Provider Nurse Practitioner
DX: M25.531 Pain in right wrist (principal)
CPT/HCPCS: 99213; G0463

== ENCOUNTER 2024-12-06 18:21 | Emergency (ER) | payer MEDICAID, SELFPAY ==
[2024-12-06 18:32] VITALS: BP 138/81; PULSE 103; RESP 18; TEMP 37.3; O2SAT 100
[2024-12-06 18:56] LABS: EDINFLUASCREEN Negative (Negative); EDINFLUBSCREEN Negative (Negative)
--- NOTE | 2024-12-06 18:57 | ED_ITS ---
HPI - URI/Sore Throat General Chief Complaint: Upper Respiratory Infection Stated Complaint: bodyaches,MAHONEY,sore throat Time Seen by Provider: 12/06/24 18:58 Source: patient, RN notes reviewed and old records reviewed Mode of arrival: ambulatory Limitations: no limitations History of Present Illness HPI Narrative: Patient presents with complaints of flu-like symptoms of began last night. 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 She also has a daughter who has influenza. She has not been taking any medication for her symptoms. She reports that she has been feeling worse throughout the day today. She appears to feel unwell, but is not in any distress. Related Data Allergies Allergy/AdvReac Type Severity Reaction Status Date / Time No Known Allergies Allergy Verified 12/06/24 18:28 Review of Systems Review of Systems: All systems reviewed & are unremarkable except as noted in HPI and below Constitutional: Constitutional: Reports no additional constitutional complaints, Reports body ache(s), Reports chills, Reports fever(s) and Reports headache(s) ENT: Reports system reviewed and no additional complaints, except as documented Cardiovascular: Cardiovascular: Reports no additional cardiovascular complaints Respiratory: Respiratory: Reports no additional respiratory complaints and Reports cough Gastrointestinal: Gastrointestinal: Reports no additional gastrointestinal complaints [facility] Past Medical History Medical History Patient denies significant medical history Social History Social History Smoking status: Never smoker Gender identity (if verbalized by the patient): Female Sexual Orientation (if Verbalized by the Patient): Straight or Heterosexual Comments At the time of my signature, I reviewed and agree with the nursing past medical, surgical, social, and family history. There is no relevant family history pertinent to the patient complaint. Exam Const: General: cooperative, no acute distress, alert and awake Orientation/consciousness: oriented to person, oriented to place and oriented to time HENMT: Head: normal to inspection Ears: TM's normal bilaterally Mouth: Yes moist mucous membranes Throat: posterior oropharynx normal Resp: Effort & Inspection: normal respiratory effort and able to speak in complete sentences Auscultation: clear to auscultation bilaterally, no crackles, no rales, no rhonchi and no wheezes Cardio: Palpation: normal PMI Rate: regular rate Rhythm: regular rhythm Heart sounds: S1 normal heart sound present and S2 normal heart sound present Neuro: General: oriented to person, oriented to place and oriented to time Cranial nerves: Yes CN's II-XII intact bilaterally Psych: Appearance: grossly normal Thought process: Normal thought process present Insight: Good insight present (Psych) Judgement: Good judgement present (Psych) Course Course Level of Care: Express Care Visit Vital Signs Vital signs: Vital Signs Temperature 99.2 F 12/06/24 18:32 Pulse Rate 103 H 12/06/24 18:32 Respiratory Rate 18 12/06/24 18:32 Blood Pressure 138/81 12/06/24 18:32 Pulse Oximetry 100 12/06/24 18:32 Oxygen Delivery Room Air 12/06/24 18:32 Temperature 99.2 F 12/06/24 18:32 Pulse Rate 103 H 12/06/24 18:32 Respiratory Rate 18 12/06/24 18:32 Blood Pressure 138/81 12/06/24 18:32 Pulse Oximetry 100 12/06/24 18:32 Oxygen Delivery Room Air 12/06/24 18:32 Reviewed MDM - URI/Sore Throat MDM Narrative Medical decision making narrative: Negative influenza, patient reports negative COVID at work. Likely, she has not been ill long enough for influenza show on testing. Patient was advised this. Supportive care measures discussed at length. Work note provided. Discharge instructions reviewed with patient, as well as provided in writing per nursing staff. The instructions also include specific and strict return/GO TO THE ER as well as f/u information. All questions have been answered, and the patient deny any further questions with discharge and discharge plan. Some parts of this dictation were generated by voice recognition software and may contain typographical and/or grammatical inaccuracies. Differential Diagnosis Differential diagnosis: Likely upper respiratory infection, otitis media, viral infection and influenza Medical Records Attestation: I reviewed the patient's medical records. Lab Data Attestation: I reviewed the patient's lab results. Labs: Lab Results 12/06/24 Range/Units 18:54 POC Influenza A Ag Negative (Negative) POC Influenza B Ag Negative (Negative) Discharge Plan Discharge Clinical Impression: Upper respiratory infection Qualifiers: URI type: unspecified viral URI Qualified Code(s): J06.9 - Acute upper respiratory infection, unspecified Patient Disposition: Home, Self-Care Condition: Stable Instructions: Antibiotic Form, Influenza (ED) Additional Instructions: Use [id number] medications to treat your symptoms. Follow package instructions. Follow-up with primary care provider. Emergency department for new or worse symptoms Patient Language: Hungarian Follow-up/Referrals: Paula,CESAR Xiong [Primary Care Provider] - 2 Weeks Stand Alone Forms: Work/School Release IP Time of Disposition: 19:06
[2024-12-06 19:07] LABS: EDINFLUASCREEN Negative (Negative); EDINFLUBSCREEN Negative (Negative)
== END 2024-12-06 19:14 | disposition home or self-care (01) ==
PROVIDERS: Emergency Provider Nurse Practitioner Family; PCP Physician Assistant
DX: J06.9 Acute upper respiratory infection, unspecified (principal)
CPT/HCPCS: 87804; 99212; G0463

== ENCOUNTER 2025-07-12 09:54 | Emergency (ER) | payer OTHER, SELFPAY ==
[2025-07-12 10:09] VITALS: BP 138/92; PULSE 91; RESP 16; TEMP 36.8; O2SAT 100
--- NOTE | 2025-07-12 10:48 | ED.UPPEXIN ---
HPI - Extremity Injury (Upper) General Chief Complaint: Extremity Injury, Upper Stated Complaint: Right Shoulder Pain Time Seen by Provider: 07/12/25 10:48 Source: patient Mode of arrival: ambulatory Limitations: no limitations History of Present Illness HPI narrative: 40-year-old female presents with complaint of right shoulder pain. 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 Patient states that the resident was obese, had hard time giving her bathtub between the large bed in the space in the shower. Had to lift her abdomen and arms to clean her and strained right shoulder. I do not think that it is fractured, just released sore today . Patient states pain worse this morning with burning and pain with movement. Not taking any [id number] pain medication to treat her symptoms. All systems reviewed and negative except as noted above. Related Data Allergies Allergy/AdvReac Type Severity Reaction Status Date / Time No Known Allergies Allergy Verified 07/12/25 10:39 [facility] Past Medical History Medical History Patient denies significant medical history Social History Social History Smoking status: Never smoker Gender identity (if verbalized by the patient): Female Sexual Orientation (if Verbalized by the Patient): Straight or Heterosexual Comments At time of signature, agree with nursing past medical, surgical, social and family history. There is no relevant family history pertinent to the presenting complaint. Exam Narrative: GENERAL: This is a well-nourished, well-developed patient, in no apparent distress. HEAD: normocephalic, atraumatic. EYES: PERRL. Sclera clear/white. Vision is grossly intact. EARS: External ears normal NOSE: External nose normal NECK: Neck supple, non-tender without lymphadenopathy, masses or thyromegaly. CARDIOVASCULAR: Regular rate and rhythm without murmurs, gallops, or rubs. RESPIRATORY: Clear to auscultation. Breath sounds equal bilaterally. No wheezes, rales, or rhonchi. SKIN: warm, Dry, intact with no suspicious lesions or rash, good texture and turgor. NEURO: awake, alert, and oriented to person, place and time. There were no obvious focal neurologic abnormalities. EXTREMITIES: Tenderness to right shoulder joint at AC. Range of motion normal. right upper extremity strength 5/5. negative right arm drop Test. Course Course Level of Care: Express Care Visit Vital Signs Vital signs: Vital Signs Temperature 36.8 C 07/12/25 10:09 Pulse Rate 91 07/12/25 10:09 Respiratory Rate 16 07/12/25 10:09 Blood Pressure 138/92 H 07/12/25 10:09 Pulse Oximetry 100 07/12/25 10:09 Oxygen Delivery Room Air 07/12/25 10:09 Temperature 36.8 C 07/12/25 10:09 Pulse Rate 91 07/12/25 10:09 Respiratory Rate 16 07/12/25 10:09 Blood Pressure 138/92 H 07/12/25 10:09 Pulse Oximetry 100 07/12/25 10:09 Oxygen Delivery Room Air 07/12/25 10:09 reviewed MDM - Extremity Injury (Upper) MDM Narrative Medical decision making narrative: patient offered x-ray of right shoulder but she did not feel was necessary. Patient states that concern for fracture. Just strained arm and needs a few days off of work. Recommend ibuprofen, rest, ice. Differential Diagnosis Differential diagnosis: Likely other ( Right shoulder strain/ sprain) Discharge Plan Discharge Clinical Impression: Right shoulder strain Patient Disposition: Home Condition: Stable Instructions: Shoulder Sprain (ED), Shoulder Pain (ED) Additional Instructions: take ibuprofen as prescribed. Alternate between ice and heat. Do some stretching exercises as tolerated. Follow-up with your primary care physician if pain is not improving. Patient Language: [place] Prescriptions: New ibuprofen 800 mg tablet 800 mg PO Q6-8H PRN (Reason: pain) Qty: 30 0RF Follow-up/Referrals: Paula,CESAR Xiong [Primary Care Provider, Unknown] Stand Alone Forms: Work/School Release IP Time of Disposition: 10:55
== END 2025-07-12 11:04 | disposition home or self-care (01) ==
PROVIDERS: Emergency Provider Nurse Practitioner Family; PCP Physician Assistant
DX: S46.911A Strain of unspecified muscle, fascia and tendon at shoulder and upper arm level, right arm, initial encounter (principal); X50.0XXA Overexertion from strenuous movement or load, initial encounter; Y99.0 Civilian activity done for income or pay
CPT/HCPCS: 99213; G0463